=== PATIENT | male | born 1990 | race Caucasian/White ===

== ENCOUNTER 2017-09-03 09:18 | Day surgery (SDC) | payer OTHER ==
[2017-09-03] MEDS ORDERED: CEFAZOLIN 1 GM INJ (11:25)
[2017-09-03] MEDS ORDERED: ROCURONIUM 50 MG INJ (11:25)
[2017-09-03] MEDS ORDERED: PROPOFOL 20 ML (11:25)
[2017-09-03] MEDS ORDERED: GLYCOPYRROLATE 0.4 MG INJ (11:25)
[2017-09-03] MEDS ORDERED: DEXAMETHASONE 4 MG/ML 1 ML INJ (11:25)
[2017-09-03] MEDS ORDERED: ONDANSETRON 4 MG INJ (11:25)
[2017-09-03] MEDS ORDERED: FENTAnyl 50 MCG/ML VIAL (11:25)
[2017-09-03] MEDS ORDERED: NEOSTIGMINE 3 MG/3 ML SYRINGE (11:25)
[2017-09-03] MEDS ORDERED: MIDAZOLAM 1 MG/ML 2 ML INJ (11:25)
[2017-09-03] MEDS ORDERED: ROPIVACAINE 0.5 % 30 ML VIAL (11:32)
[2017-09-03] MEDS: BUPIVACAINE 0.25% (MPF) 30 ML INJ (11:57)
[2017-09-03] MEDS ORDERED: SUGAMMADEX SODIUM 200 MG/2 ML VIAL IV ×2 (12:07→13:14)
[2017-09-03] MEDS: POLYMYXIN/BACITRACIN 1L IRRIG (12:22)
[2017-09-03] MEDS: ONDANSETRON 4 MG INJ IV (12:28)
[2017-09-03] MEDS: FENTAnyl 50 MCG/ML VIAL IV ×2 (12:29→12:38)
[2017-09-03] MEDS ORDERED: EPHEDrine SULFATE 50 MG/5 ML SYG IV (12:30)
[2017-09-03] MEDS ORDERED: hydrALAzine 20 MG INJ IV (12:30)
[2017-09-03] MEDS ORDERED: LABETALOL HCL 20MG INJ IV (12:30)
[2017-09-03] MEDS ORDERED: IPRATROPIUM (NEB) 0.5 MG/2.5 ML AMP HHN (12:30)
[2017-09-03] MEDS ORDERED: MIDAZOLAM 1 MG/ML 2 ML INJ IV (12:30)
[2017-09-03] MEDS ORDERED: DIPHENHYDRAMINE 50 MG INJ IV (12:30)
[2017-09-03] MEDS ORDERED: ALBUTEROL 0.083% (NEB) 2.5 MG/3 ML AMP HHN (12:30)
[2017-09-03] MEDS ORDERED: FENTAnyl 50 MCG/ML VIAL IV ×2 (12:30)
[2017-09-03] MEDS ORDERED: TRIMETHOBENZAMIDE 100 MG/ML VIAL IM (12:30)
[2017-09-03] MEDS ORDERED: HYDROmorphONE (0.2 MG/ML) 10ML SYG IV ×2 (12:30)
[2017-09-03] MEDS ORDERED: MEPERIDINE 25 MG INJ IV (12:30)
[2017-09-03] MEDS ORDERED: LABETALOL HCL 20MG INJ (12:51)
[2017-09-03] MEDS: HYDROCODONE/APAP (5/325) TAB PO (12:56)
[2017-09-03] MEDS: HYDROmorphONE (0.2 MG/ML) 10ML SYG IV ×2 (13:03→13:15)
[2017-09-03] MEDS: OXYCODONE/ACETAMINOPHEN (5/325) TAB PO ×2 (13:57→15:04)
== END 2017-09-03 15:25 | disposition home or self-care (01) ==
LOC: SDS 09:18
DX: K40.30 Unilateral inguinal hernia, with obstruction, without gangrene, not specified as recurrent (principal)
CPT/HCPCS: 49505